=== PATIENT | female | born 1955 | race Caucasian/White ===

== ENCOUNTER 2019-09-13 06:48 | Emergency (ER) | payer OTHER ==
--- OUTSIDE RECORDS SUMMARY | 2019-09-13 06:49 | XMS REPORT ---
:1955 Author Organization eClinicalWorks Care Team Providers Name Role Phone Torres, Na Provider Role Unavailable Allergies, Adverse Reactions, Alerts Substance Reaction Event Type N.K.D.A. Info Not Available Non Drug Allergy Problems Problem Type Condition Code Onset Dates Condition Status Assessment Screening mammogram, encounter for Z12.31 Active Assessment Vitamin D deficiency E55.9 Active Problem Vitamin D deficiency E55.9 Active Problem Skin lesion L98.9 Active Problem Allergic rhinitis J30.9 Active Assessment Adult general medical exam Z00.00 Active Assessment Routine gynecological examination Z01.419 Active Problem Hypercholesterolemia E78.00 Active Medications Medication Code Code Instructions Start End Date Status Dosage System Date Zyrtec Allergy [facility] [id number] 10 MG Orally Active 1 tablet Once a day Results No Known Results Summary Purpose eClinicalWorks Submission
--- OUTSIDE RECORDS SUMMARY | 2019-09-13 06:50 | XMS REPORT ---
:1955 Author Organization eClinicalWorks Care Team Providers Name Role Phone Torres, Na Provider Role Unavailable Allergies No Known Allergies Problems Problem Type Condition Code Onset Dates Condition Status Problem Vitamin D deficiency E55.9 Active Problem Skin lesion L98.9 Active Problem Allergic rhinitis J30.9 Active Problem Hypercholesterolemia E78.00 Active Medications No Known Medications Results No Known Results Summary Purpose eClinicalWorks Submission
[2019-09-13] MEDS ORDERED: ONDANSETRON 4 MG/2 ML VIAL ONE ×2 (07:36→09:45)
[2019-09-13] MEDS ORDERED: NA CHLORIDE 0.9% 1,000 ML ONE ×2 (07:36→08:40)
[2019-09-13] MEDS ORDERED: CEFTRIAXONE/SWI 1gm 1 GM/10 ML SYR ONE (07:36)
[2019-09-13] MEDS ORDERED: MORPHINE 2 MG/ML SYR ONE (07:36)
[2019-09-13] MEDS ORDERED: KETOROLAC 30 MG/ML INJ ONE (07:36)
[2019-09-13 07:46] LABS: Absolute Lymphocytes (CBC) 3.4 K/uL (0.7-4.9); Basophils % 0.9 % (0-1.3); Hematocrit 40.4 % (36.0-45.0); Lymphocytes % 47.8 % (15.3-44.8); MPV 9.9 fL (7.6-11.3); RBC Red Blood Cell Count 4.52 M/uL (3.86-4.86)
--- NOTE | 2019-09-13 08:18 | RAD REPORT ---
EXAM DESCRIPTION: CT - Stone Protocol - 09/13/2019 7:54 am CLINICAL HISTORY: Flank pain. Pain;Flank pain COMPARISON: No comparisons TECHNIQUE: Axial images were obtained without oral or IV contrast. Lack of contrast limits solid org an and vascular assessment. The [id number] spans the entirety of the system partially obscuring uppermost abdomen and lung bases. Coronal reformatted images were obtained and reviewed. All CT scans are performed using dose optimization technique as appropriate and may include automated exposure control or mA/KV adjustment according to patient size. FINDINGS: The lower lung brown are clear. Small hiatal hernia. Imaged portions of the liver and spleen show no suspicious findings on non-contrast imaging. The panc reas and adrenal glands are normal. No pathologic lymphadenopathy in the abdomen or pelvis. 3 mm stone proximal left ureter with mild left hydronephrosis. Additional punctate calculus is seen i nferior calyx left kidney. No bowel obstruction, free air, free fluid or abscess. The appendix is not identified as a discrete s tructure, however, no secondary findings of appendicitis are identified. No significant bony abnormality. IMPRESSION: 3 mm stone proximal left ureter with mild left hydronephrosis.
[2019-09-13 08:24] LABS: Urine Appearance CLEAR; Urine Bacteria 20-50 /HPF (<20); Urine Bilirubin NEGATIVE (NEG); Urine Blood 3+ (NEG); Urine Color RED; Urine Glucose NEGATIVE (NEG); Urine Protein 3+ (NEG); Urine RBC >50 /HPF (NONE SEEN); Urine pH 5.5 (5.0-7.0)
[2019-09-13 08:25] LABS: Urine Culture Reflex Order NOT NEEDED; Urine Mucus HEAVY /HPF (NONE SEEN)
[2019-09-13 08:31] LABS: Bilirubin Direct 0.1 mg/dL (0-0.2); Bilirubin Total 0.4 mg/dL (0.2-1.0); Potassium 3.5 mmol/L (3.5-5.1); Protein, Total 7.3 g/dL (6.4-8.2)
[2019-09-13] MEDS ORDERED: CIPROFLOXACIN HCL 500 MG TAB ONE (08:40)
[2019-09-13] MEDS ORDERED: TAMSULOSIN 0.4 MG SR CAP ONE (08:40)
[2019-09-13 09:02] LABS: Blood Morphology Comment NOT SEEN (NOT SEEN); Platelet Estimate ADEQ; Urine White Blood Cell Casts OK
--- NOTE | 2019-09-13 09:20 | ER ---
Nurse's Notes [facility] Name: Haven Corbin Age: 64 yrs Sex: Female : 1955 Arrival Date: 09/13/2019 Time: 06:50 Bed 5 Private MD: Diagnosis: Hydronephrosis with renal and ureteral calculous obstruction;Urinary tract infection, site not specified Presentation: 09/13 07:09 Presenting complaint: Patient states: left flank pain that began today around 0545. Pt aa5 also reports nausea/vomiting. Pt states "when I went to the bathroom I saw some blood this morning". Pt reports being on Augmentin for recent dog bite. 07:09 Transition of care: patient was not received from another setting of care. Onset of aa5 symptoms was September 13, 2019. Risk Assessment: Do you want to hurt yourself or someone else? Patient reports no desire to harm self or others. Initial Sepsis Screen: Does the patient meet any 2 criteria? No. Patient's initial sepsis screen is negative. Does the patient have a suspected source of infection? No. Patient's initial sepsis screen is negative. Care prior to arrival: None. 07:09 Acuity: HARIHTA 3 aa5 07:09 Method Of Arrival: Wheelchair aa5 Historical: - Allergies: 07:09 No Known Allergies; aa5 - PMHx: 07:09 None; aa5 - PSHx: 07:09 ; aa5 - Immunization history:: Adult Immunizations up to date. - Social history:: Smoking status: Patient/guardian denies using tobacco. - Ebola Screening: : No symptoms or risks identified at this time. - Family history:: not pertinent. Screenin:05 Abuse screen: Denies threats or abuse. Denies injuries from another. Nutritional hb screening: No deficits noted. Tuberculosis screening: No symptoms or risk factors identified. Fall Risk None identified. Assessment: 07:32 General: Appears in no apparent distress. Behavior is calm, cooperative. Pain: Pain hb currently is 3 out of 10 on a pain scale. Neuro: Level of Consciousness is awake, alert, obeys commands, Oriented to person, place, time, situation. Cardiovascular: Capillary refill < 3 seconds Patient's skin is warm and dry. Respiratory: Airway is patent Respiratory effort is even, unlabored, Respiratory pattern is regular, symmetrical. GI: Reports left flank pain, nausea. : Reports left flank pain. EENT: No signs and/or symptoms were reported regarding the EENT system. Derm: Skin is pink, warm \\T\\ dry. Musculoskeletal: No signs and/or symptoms reported regarding the musculoskeletal system. 07:49 Reassessment: Pt to CT. hb 08:30 Reassessment: Patient appears in no apparent distress at this time. Patient and/or hb family updated on plan of care and expected duration. Pain level reassessed. Patient is alert, oriented x 3, equal unlabored respirations, skin warm/dry/pink. Patient denies pain at this time. 09:30 Reassessment: Patient appears in no apparent distress at this time. Patient and/or hb family updated on plan of care and expected duration. Pain level reassessed. Patient is alert, oriented x 3, equal unlabored respirations, skin warm/dry/pink. Patient states feeling better. Vital Signs: 07:10 BP 118 / 89; Pulse 68; Resp 16 S; Temp 97.5(O); Pulse Ox 98% on R/A; Weight 57.61 kg aa5 (R); Height 4 ft. 11 in. (149.86 cm) (R); Pain 9/10; 08:30 BP 115 / 77; Pulse 55; Resp 14; Pulse Ox 100% on R/A; Pain 0/10; hb 09:30 BP 110 / 74; Pulse 64; Resp 15; Pulse Ox 99% on R/A; Pain 0/10; hb 07:10 Body Mass Index 25.65 (57.61 kg, 149.86 cm) aa5 ED Course: 06:50 Patient arrived in ED. cl3 07:09 Arm band placed on Patient placed in an exam room, on a stretcher. aa5 07:15 Delta Lynn MD is Attending Physician. claudia 07:20 Triage completed. aa5 07:31 Tiff Steel, TIANNA is Primary Nurse. hb 07:34 Initial lab(s) drawn, by me, sent to lab. Inserted saline lock: 20 gauge in right dh3 antecubital area, using aseptic technique. Blood collected. 07:45 Patient has correct armband on for positive identification. Placed in gown. Bed in low hb position. Call light in reach. Side rails up X 1. 07:45 Urine collected: clean catch specimen, jose angel blood. dh3 08:04 CT Stone Protocol In Process Unspecified. EDMS 08:34 Paul Soni MD is Referral Physician. claudia 09:59 No provider procedures requiring assistance completed. IV discontinued, intact, hb bleeding controlled, No redness/swelling at site. Pressure dressing applied. Administered Medications: 07:45 Drug: NS 0.9% 1000 ml Route: IV; Rate: 1 bolus; Site: right antecubital; hb 08:37 Follow up: Response: No adverse reaction; IV Status: Completed infusion; IV Intake: hb 1000ml 07:45 Drug: TORadol 30 mg Route: IVP; Site: right antecubital; hb 08:15 Follow up: Response: No adverse reaction hb 07:45 Drug: morphine 2 mg Route: IVP; Site: right antecubital; hb 08:15 Follow up: Response: No adverse reaction; Pain is decreased hb 07:45 Drug: Zofran 4 mg Route: IVP; Site: right antecubital; hb 08:05 Follow up: Response: No adverse reaction; Nausea is decreased hb 08:18 Drug: Rocephin 1 grams Route: IV; Rate: per protocol; Site: right antecubital; hb 08:40 Follow up: Response: No adverse reaction; IV Status: Completed infusion; IV Intake: 10mlhb 08:50 Drug: Cipro 500 mg Route: PO; hb 09:40 Follow up: Response: No adverse reaction hb 08:50 Drug: Flomax 0.4 mg Route: PO; hb 09:40 Follow up: Response: No adverse reaction hb 08:50 Drug: NS 0.9% 1000 ml Route: IV; Rate: 1 bolus; Site: right antecubital; hb 09:35 Follow up: Response: No adverse reaction; IV Status: Completed infusion; IV Intake: hb 1000ml Intake: 08:37 IV: 1000ml; Total: 1000ml. hb 08:40 IV: 10ml; Total: 1010ml. hb 09:35 IV: 1000ml; Total: 2010ml. hb Outcome: 08:34 Discharge ordered by . claudia 09:59 Discharged to home ambulatory, with family. hb 09:59 Condition: stable 09:59 Discharge instructions given to patient, family, Instructed on discharge instructions, follow up and referral plans. medication usage, Demonstrated understanding of instructions, follow-up care, medications, Prescriptions given X 5 10:00 Patient left the ED. hb Signatures: Dispatcher [employer] EDDelta Sanchez MD MD cha Calderon, Audri, RN RN aa5 Tiff Steel RN RN Barb Zamora 3 Mallory Shirley cl3 Corrections: (The following items were deleted from the chart) 09:59 09:59 Discharge instructions given to patient, family, Instructed on discharge hb instructions, follow up and referral plans. medication usage, Demonstrated understanding of instructions, follow-up care, medications, Prescriptions given X 4, hb
--- NOTE | 2019-09-13 09:22 | EDPHYS ---
Physician Documentation [facility] Name: Haven Corbin Age: 64 yrs Sex: Female : 1955 Arrival Date: 09/13/2019 Time: 06:50 Bed 5 Private MD: ED Physician Delta Lynn HPI: 09/13 07:21 This 64 yrs old Female presents to ER via Wheelchair with complaints of Left claudia Side Pain. 07:21 The patient presents with abdominal pain in the left upper quadrant, in the left lower claudia quadrant, abdominal distention in the upper abdomen, in the lower abdomen. Onset: The symptoms/episode began/occurred this morning. The patient complains of pain in the left low back and left mid back. The pain radiates to the left low back and left mid back. Onset: The symptoms/episode began/occurred just prior to arrival, this morning. Modifying factors: The symptoms are alleviated by nothing. the symptoms are aggravated by nothing. Associated signs and symptoms: The patient has no apparent associated signs or symptoms. Historical: - Allergies: 07:09 No Known Allergies; aa5 - PMHx: 07:09 None; aa5 - PSHx: 07:09 ; aa5 - Immunization history:: Adult Immunizations up to date. - Social history:: Smoking status: Patient/guardian denies using tobacco. - Ebola Screening: : No symptoms or risks identified at this time. - Family history:: not pertinent. ROS: 07:21 Constitutional: Negative for fever, chills, and weight loss, Eyes: Negative for injury, claudia pain, redness, and discharge, ENT: Negative for injury, pain, and discharge, Neck: Negative for injury, pain, and swelling, Cardiovascular: Negative for chest pain, palpitations, and edema, Respiratory: Negative for shortness of breath, cough, wheezing, and pleuritic chest pain, Abdomen/GI: Negative for abdominal pain, nausea, vomiting, diarrhea, and constipation, : Negative for injury, bleeding, discharge, and swelling, MS/Extremity: Negative for injury and deformity, Skin: Negative for injury, rash, and discoloration, Neuro: Negative for headache, weakness, numbness, tingling, and seizure, Psych: Negative for depression, anxiety, suicide ideation, homicidal ideation, and hallucinations, Allergy/Immunology: Negative for hives, rash, and allergies, Endocrine: Negative for neck swelling, polydipsia, polyuria, polyphagia, and marked weight changes, Hematologic/Lymphatic: Negative for swollen nodes, abnormal bleeding, and unusual bruising. 07:21 Back: Positive for pain at rest, flank pain, on the left. Exam: 07:21 Constitutional: This is a well developed, well nourished patient who is awake, alert, claudia and in no acute distress. Head/Face: Normocephalic, atraumatic. Eyes: Pupils equal round and reactive to light, extra-ocular motions intact. Lids and lashes normal. Conjunctiva and sclera are non-icteric and not injected. Cornea within normal limits. Periorbital areas with no swelling, redness, or edema. ENT: Nares patent. No nasal discharge, no septal abnormalities noted. Tympanic membranes are normal and external auditory canals are clear. Oropharynx with no redness, swelling, or masses, exudates, or evidence of obstruction, uvula midline. Mucous membranes moist. Neck: Trachea midline, no thyromegaly or masses palpated, and no cervical lymphadenopathy. Supple, full range of motion without nuchal rigidity, or vertebral point tenderness. No Meningismus. Chest/axilla: Normal chest wall appearance and motion. Nontender with no deformity. No lesions are appreciated. Cardiovascular: Regular rate and rhythm with a normal S1 and S2. No gallops, murmurs, or rubs. Normal PMI, no JVD. No pulse deficits. Respiratory: Lungs have equal breath sounds bilaterally, clear to auscultation and percussion. No rales, rhonchi or wheezes noted. No increased work of breathing, no retractions or nasal flaring. Abdomen/GI: Soft, non-tender, with normal bowel sounds. No distension or tympany. No guarding or rebound. No evidence of tenderness throughout. Female : Normal external genitalia. Skin: Warm, dry with normal turgor. Normal color with no rashes, no lesions, and no evidence of cellulitis. MS/ Extremity: Pulses equal, no cyanosis. Neurovascular intact. Full, normal range of motion. Neuro: Awake and alert, GCS 15, oriented to person, place, time, and situation. Cranial nerves II-XII grossly intact. Motor strength 5/5 in all extremities. Sensory grossly intact. Cerebellar exam normal. Normal gait. Psych: Awake, alert, with orientation to person, place and time. Behavior, mood, and affect are within normal limits. 07:21 Back: pain, that is mild, ROM is painless, normal spinal alignment noted, CVA tenderness, that is mild, is noted on the left, muscle spasm, is not present. Vital Signs: 07:10 BP 118 / 89; Pulse 68; Resp 16 S; Temp 97.5(O); Pulse Ox 98% on R/A; Weight 57.61 kg aa5 (R); Height 4 ft. 11 in. (149.86 cm) (R); Pain 9/10; 08:30 BP 115 / 77; Pulse 55; Resp 14; Pulse Ox 100% on R/A; Pain 0/10; hb 09:30 BP 110 / 74; Pulse 64; Resp 15; Pulse Ox 99% on R/A; Pain 0/10; hb 07:10 Body Mass Index 25.65 (57.61 kg, 149.86 cm) aa5 MDM: 07:15 Patient medically screened. [facility] 07:23 Data reviewed: vital signs, nurses notes, lab test result(s), radiologic studies, CT claudia scan. 09/13 07:21 Order name: Basic Metabolic Panel; Complete Time: 08:[address] [facility] 09/13 07:21 Order name: CBC with Diff [facility] 09/13 07:21 Order name: Creatinine for Radiology; Complete Time: 08:[address] [facility] 09/13 07:21 Order name: Hepatic Function; Complete Time: 08:[address] [facility] 09/13 07:21 Order name: Lipase; Complete Time: 08:[address] [facility] 09/13 07:21 Order name: Urine Culture [facility] 09/13 07:21 Order name: CT Stone Protocol; Complete Time: 08:[address] [facility] 09/13 08:07 Order name: Urinalysis W/Microscopic; Complete Time: 08:32 EDMS 09/13 09:01 Order name: CBC Smear Scan EDVT 09/13 09:03 Order name: Manual Differential EDVT 09/13 07:21 Order name: IV Saline Lock; Complete Time: 07:[address] [facility] 09/13 07:21 Order name: Labs collected and sent; Complete Time: 07:[address] [facility] 09/13 07:21 Order name: Urine Dipstick-Ancillary (obtain specimen); Complete Time: 07:51 cluadia Administered Medications: 07:45 Drug: NS 0.9% 1000 ml Route: IV; Rate: 1 bolus; Site: right antecubital; hb 08:37 Follow up: Response: No adverse reaction; IV Status: Completed infusion; IV Intake: hb 1000ml 07:45 Drug: TORadol 30 mg Route: IVP; Site: right antecubital; hb 08:15 Follow up: Response: No adverse reaction hb 07:45 Drug: morphine 2 mg Route: IVP; Site: right antecubital; hb 08:15 Follow up: Response: No adverse reaction; Pain is decreased hb 07:45 Drug: Zofran 4 mg Route: IVP; Site: right antecubital; hb 08:05 Follow up: Response: No adverse reaction; Nausea is decreased hb 08:18 Drug: Rocephin 1 grams Route: IV; Rate: per protocol; Site: right antecubital; hb 08:40 Follow up: Response: No adverse reaction; IV Status: Completed infusion; IV Intake: 10mlhb 08:50 Drug: Cipro 500 mg Route: PO; hb 09:40 Follow up: Response: No adverse reaction hb 08:50 Drug: Flomax 0.4 mg Route: PO; hb 09:40 Follow up: Response: No adverse reaction hb 08:50 Drug: NS 0.9% 1000 ml Route: IV; Rate: 1 bolus; Site: right antecubital; hb 09:35 Follow up: Response: No adverse reaction; IV Status: Completed infusion; IV Intake: hb 1000ml Disposition: 09/13/19 08:34 Discharged to Home. Impression: Hydronephrosis with renal and ureteral calculous obstruction, Urinary tract infection, site not specified. - Condition is Stable. - Discharge Instructions: Urinary Tract Infection, Adult, Kidney Stones, [id number], Hydronephrosis, Dietary Guidelines to Help Prevent Kidney Stones. - Prescriptions for Tylenol- Codeine #3 300-30 mg Oral Tablet - take 2 tablet by ORAL route every 6 hours As needed; 30 tablet. Zofran 4 mg Oral Tablet - take 1 tablet by ORAL route every 12 hours As needed; 20 tablet. Flomax 0.4 mg Oral Capsule, Sust. Release 24 hr - take 1 capsule by ORAL route once daily 1/2 hour following the same meal each day; 30 capsule. Cipro 500 mg Oral Tablet - take 1 tablet by ORAL route every 12 hours for 7 days; 14 tablet. Bactrim DS 800- 160 mg Oral Tablet - take 1 tablet by ORAL route every 12 hours for 3 days; 6 tablet. - Medication Reconciliation Form, Thank You Letter, Antibiotic Education, Prescription Opioid Use form. - Follow up: Private Physician; When: 2 - 3 days; Reason: Recheck today's complaints, Continuance of care, Re-evaluation by your physician. Follow up: Paul Soni MD; When: 2 - 3 days; Reason: Recheck today's complaints, Re-evaluation by your physician. - Problem is new. - Symptoms have improved. Signatures: Dispatcher [employer] EDMS Delta Lynn MD MD cha Calderon, Audri RN RN aa5 Tiff Steel RN RN hb Corrections: (The following items were deleted from the chart) 10:00 08:34 09/13/2019 08:34 Discharged to Home. Impression: Hydronephrosis with renal and hb ureteral calculous obstruction; Urinary tract infection, site not specified. Condition is Stable. Discharge Instructions: Urinary Tract Infection, Adult, Kidney Stones, [id number], Hydronephrosis. Prescriptions for Tylenol-Codeine #3 300-30 mg Oral Tablet - take 2 tablet by ORAL route every 6 hours As needed; 30 tablet, Zofran 4 mg Oral Tablet - take 1 tablet by ORAL route every 12 hours As needed; 20 tablet, Flomax 0.4 mg Oral Capsule, Sust. Release 24 hr - take 1 capsule by ORAL route once daily 1/2 hour following the same meal each day; 30 capsule, Cipro 500 mg Oral Tablet - take 1 tablet by ORAL route every 12 hours for 7 days; 14 tablet. and Forms are Medication Reconciliation Form, Thank You Letter, Antibiotic Education, Prescription Opioid Use. Follow up: Private Physician; When: 2 - 3 days; Reason: Recheck today's complaints, Continuance of care, Re-evaluation by your physician. Follow up: Paul Soni; When: 2 - 3 days; Reason: Recheck today's complaints, Re-evaluation by your physician. Problem is new. Symptoms have improved. claudia
[2019-09-13] MEDS ORDERED: MORPHINE 4 MG/ML SYR ONE (09:45)
[2019-09-13 10:07] VITALS: TEMP 97.5
[2019-09-13 10:10] VITALS: BP 110/74; O2SAT 99
== END 2019-09-13 10:00 | disposition home or self-care (01) ==
LOC: ER 06:48
DX: N13.2 Hydronephrosis with renal and ureteral calculous obstruction (principal); N39.0 Urinary tract infection, site not specified
CPT/HCPCS: 96365; 96361; 87088; 85025; 81001; 87086; 80048; 36415; 80076; 83690; 76377; 74176; 96375; 99284; J2270; J0696; J7030 ×2; J2405 ×2

== ENCOUNTER 2021-01-24 07:12 | Day surgery (SDC) | payer OTHER ==
[2021-01-24] MEDS ORDERED: Ringers Lactate 1,000 ML IV ONE (08:24)
[2021-01-24 08:27] VITALS: O2SAT 100
[2021-01-24] MEDS ORDERED: LIDOCAINE 1% MPF 5 ML VIAL ONE (09:00)
[2021-01-24] MEDS ORDERED: propofoL 200 MG/20 ML VIAL IV ONE ×2 (09:00)
--- NOTE | 2021-01-24 09:35 | ENDO RPT ---
[address], [address] COLONOSCOPY PROCEDURE REPORT EXAM DATE: 01/24/2021 PATIENT NAME: Haven Corbin MR #: [id number] BIRTHDATE: 1955 ATTENDING: Lon Flor DR STATUS: outpatient REVISING CLERK: Viviana Shaw RN and Stacia Gale INDICATIONS: The patient is a 66 yr old Female here for a colonoscopy due to colon cancer screening PROCEDURE PERFORMED: Colonoscopy with biopsy - cold polypectomy MEDICATIONS: Per Anesthesia. ESTIMATED BLOOD LOSS: None CONSENT: The patient understands the risks and benefits of the procedure and understands that these risks include, but are not limited to: sedation, allergic reaction, infection, perforation and/or bleeding. Alternative means of evaluation and treatment include, among others: physical exam, x-rays, and/or surgical intervention. The patient elects to proceed with this endoscopic procedure. DESCRIPTION OF PROCEDURE: During intra-op preparation period all mechanical medical equipment was checked for proper function. Hand hygiene and appropriate measures for infection prevention was taken. Procedure, possible complications, alternatives including, but not limited to possibility of bleeding, perforation, tear, infection, sepsis, need for surgery, need for blood transfusion, were explained to the patient. After the risks, benefits and alternatives of the procedure were thoroughly explained, Informed consent was verified, confirmed and timeout was successfully executed by the treatment team. The patient was placed in the left lateral position. A digital rectal exam was performed and revealed internal hemorrhoids. After appropriate level of anesthesia, the scope was passed. The [id number] ([id number]) endoscope was introduced through the anus and advanced to the cecum, which was identified by both the appendix and ileocecal valve. The quality of the prep was good. The instrument was then slowly withdrawn as the colon was fully examined. Scope withdrawal time was 10 minutes. COLON FINDINGS: A smooth semi-pedunculated polyp ranging between 3-7mm in size was found in the rectum. A polypectomy was performed using snare cautery. The resection was complete, the polyp tissue was completely retrieved and sent to histology. Moderate sized internal hemorrhoids were found. Retroflexed views revealed no abnormalities. The scope was then completely withdrawn from the patient and the procedure terminated. ADVERSE EVENTS: There were no complications. IMPRESSIONS: 1. Semi-pedunculated polyp ranging between 3-7mm in size was found in the rectum; polypectomy was performed using snare cautery 2. Moderate sized internal hemorrhoids RECOMMENDATIONS: 1. avoid NSAIDS for 2 weeks 2. await biopsy results 3. fiber rich diet 4. follow-up: office 2 week(s) 5. Monitor for any evidence of rectal bleeding. 6. yearly hemoquant 7. hemorrhoidal hygiene 8. increase dietary water RECALL: for Colonoscopy, pending biopsy results. Lon Flor DR eSigned: Lon Flor DR 01/24/2021 9:35 AM cc: CPT CODES: ICD9 CODES: PATIENT NAME: Haven Corbin MR#: [id number]
[2021-01-24 10:21] VITALS: TEMP 98
[2021-01-24 10:22] VITALS: BP 146/73
== END 2021-01-24 10:08 | disposition home health service (06) ==
LOC: OR 07:12
PROVIDERS: ATTEND Surgery
PROC: 0DBP8ZX Excision of Rectum, Via Natural or Artificial Opening Endoscopic, Diagnostic (ICD-10-PCS; principal; 2021-01-24 08:30)
DX: Z12.11 Encounter for screening for malignant neoplasm of colon (principal); D12.8 Benign neoplasm of rectum; K64.8 Other hemorrhoids; Z20.822 Contact with and (suspected) exposure to COVID-19
CPT/HCPCS: 88305; 45385; U0003; J2704 ×2; J7120

== ENCOUNTER 2024-04-01 10:18 | Day surgery (SDC) | payer OTHER ==
[2024-03-29 15:27] LABS: Anion Gap 8.3 mEq/L (5.0-15.0); Potassium 4.3 mEq/L (3.5-5.1)
[2024-03-29 15:33] LABS: Absolute Basophils 0.1 K/uL (0-0.5); Absolute Eosinophils 0.2 K/uL (0-0.5); Absolute Lymphocytes (CBC) 2.8 K/uL (0.7-4.9); Absolute Monocytes 0.7 K/uL (0.1-1.3); Absolute Neutrophil 4.6 K/uL (1.8-8.0); Basophils % 0.7 % (0-1.3); Eosinophils % 1.9 % (0-4.4); Hematocrit 40.5 % (36.0-45.0); Lymphocytes % 33.4 % (15.3-44.8); MCH 29.3 pg (27.0-35.0); MCHC 32.1 g/dL (32.0-36.0); MCV 91.5 fL (80-100); MPV 10.3 fL (7.6-11.3); Monocytes % 8.2 % (3.3-12.3); Neutrophils % 55.8 % (41.7-73.7); Platelets 295 thou/uL (152-406); RBC Red Blood Cell Count 4.42 M/uL (3.86-4.86); Red Cell Distribution Width 13.9 % (12.1-15.2)
--- NOTE | 2024-03-30 13:07 | EKG ---
Test Date: 2024-03-29 Test Time: 14:51:39 Wheel Press Clerk: GALI MEASUREMENT RESULTS: Intervals: Rate: 61 [place]: 138 QRSD: 84 QT: 404 QTc: 406 [place]: P: 24 [place]: 138 QRS: 0 T: 40 INTERPRETIVE STATEMENTS: Normal sinus rhythm Normal ECG No previous ECG available for comparison Electronically Signed On 03-30-24 13:06:03 CDT by Huber Dumont
[2024-04-01] MEDS: Ringers Lactate 1,000 ML IV ONE (10:50)
[2024-04-01] MEDS ORDERED: LIDOCAINE 1% MPF 5 ML VIAL ONE (11:39)
[2024-04-01] MEDS ORDERED: propofoL 200 MG/20 ML VIAL IV ONE (11:39)
[2024-04-01 15:34] VITALS: BP 117/72; TEMP 97.6; O2SAT 100
== END 2024-04-01 12:52 | disposition home or self-care (01) ==
LOC: OR 10:18
PROVIDERS: ATTEND Surgery
PROC: 0DJD8ZZ Inspection of Lower Intestinal Tract, Via Natural or Artificial Opening Endoscopic (ICD-10-PCS; principal; 2024-04-01 12:00)
DX: Z12.11 Encounter for screening for malignant neoplasm of colon (principal); K57.30 Diverticulosis of large intestine without perforation or abscess without bleeding; K64.8 Other hemorrhoids; Z86.010 Personal history of colon polyps
CPT/HCPCS: 93005; 85025; 80048; 36415; J2704; J2001; J7120; G0121